=== PATIENT | male | born 1975 | race African-American/Black ===

== ENCOUNTER 2019-03-20 10:12 | Emergency (ER) | payer OTHER ==
[~2019-03-20] VITALS: Ht 172.7 cm; Wt 117.9 kg
[2019-03-20 10:15] VITALS: BP 113/76
[2019-03-20] MEDS ORDERED: NORCO 10-325 T1 EACH PO (10:31)
== END 2019-03-20 11:10 | disposition home or self-care (01) ==
LOC: ER 10:12
DX: S86.811A Strain of other muscle(s) and tendon(s) at lower leg level, right leg, initial encounter (principal); Z88.6 Allergy status to analgesic agent; V29.88XA Motorcycle rider (driver) (passenger) injured in other specified transport accidents, initial encounter; Y93.55 Activity, bike riding; Y92.828 Other wilderness area as the place of occurrence of the external cause; Y99.9 Unspecified external cause status